=== PATIENT | female | born 1945 | race Caucasian/White ===

== ENCOUNTER → 2024-08-22 10:09 | Outpatient (REF) | payer MEDICARE, OTHER, SELFPAY ==
[2024-08-22 12:25] LABS: % Basophils 0.9 % (0-2); % Immature Granulocytes 0.5 % (0-0.5); % Lymphocytes 33.2 % (20.5-51.1); % Neutrophils 54.4 % (42.2-75.2); Absolute Basophils 0.1 10^3/uL (0-0.2); Absolute Eosinophils 0.3 10^3/uL (0-0.7); Absolute Lymphocytes 2.9 10^3/uL (1.2-3.4); Absolute Monocytes 0.7 10^3/uL (0.1-0.6); Absolute Neutrophils 4.8 10^3/uL (1.4-6.5); Hematocrit 46.1 % (37.0-47.0); Hemoglobin 14.9 g/dL (12.0-16.0); Mean Corp Hgb Conc. 32.3 g/dL (33.0-37.0); Mean Corpuscular Hgb 28.8 pg (27.0-31.0); Mean Platelet Volume 13.6 fL (7.4-10.4); Nucleated Red Blood Cells % 0 %; Platelet Count 199 10^3/uL (130-400); Red Blood Cell Count 5.18 10^6/uL (4.20-5.40); Red Cell Dist. Width 13.6 % (11.5-14.5); White Blood Cell Count 8.7 10^3/uL (4.8-10.8)
[2024-08-22 12:27] LABS: ALT (SGPT) 52 U/L (0-35); AST (SGOT) 29 U/L (14-36); Albumin 4.3 g/dl (3.5-5.0); Alkaline Phosphatase 63 U/L (38-126); Blood Urea Nitrogen 15 mg/dl (7-17); Calcium 9.1 mg/dl (8.4-10.2); Carbon Dioxide 26 mmol/L (22-30); Chloride 110 mmol/L (98-107); Glucose 96 mg/dl (70-99); HDL Cholesterol 65 mg/dl; LDL Cholesterol, Calculated 97 mg/dl; Sodium 141 mmol/L (135-145); Total Bilirubin 0.6 mg/dl (0.2-1.3); Total Cholesterol 182 mg/dl (50-199); Total Protein 7.1 g/dl (6.3-8.2); Triglyceride 102 mg/dl (10-149); Very Low Density Lipoprotein 20 mg/dl (0-30); eGFR > 60.00
== END ==
LOC: CLAB 10:09
PROVIDERS: ATTENDING PHYSICIAN Family Medicine
DX: E78.2 Mixed hyperlipidemia (principal); R53.83 Other fatigue
CPT/HCPCS: 36415; 80053; 80061; 85025